=== PATIENT | female | born 1970 | race Caucasian/White ===

== ENCOUNTER 2019-03-06 08:32 | Outpatient (CLI) | payer OTHER ==
[~2019-03-06 08:32] MED LIST: ALPR1TAB2 PO; ASPI325T17 PO; DIAZ10TA PO; GABA-826 PO; MELO15TA6 PO; MORP60TA63 PO; OXYC-307 PO; OXYC10TA47 PO; PARO20TA98 PO; TRAZ50TA66 PO; morphine PO
[2019-03-06] MEDS ORDERED: OXYC10TA6 PO (09:00)
[2019-03-06] MEDS ORDERED: MULT-658 PO (09:00)
[2019-03-06] MEDS ORDERED: LUTE1CAP3 PO (09:00)
[2019-03-06] MEDS ORDERED: MORP60TA34 PO (09:00)
== END 2019-03-06 23:59 | disposition home or self-care (01) ==
LOC: STAR 08:32
PROVIDERS: ATTEND Orthopaedic Surgery
DX: Z02.9 Encounter for administrative examinations, unspecified (principal)

== ENCOUNTER 2019-03-10 11:33 | Inpatient (IN) | payer OTHER ==
[~2019-03-10] VITALS: Ht 170.2 cm; Wt 110.0 kg
[~2019-03-10 11:33] MED LIST changes: +LUTE1CAP3 PO; +MORP60TA34 PO; +MULT-658 PO; +OXYC10TA6 PO
[2019-03-10] MEDS ORDERED: LACTATED RINGERS 1,000 ML IV SCH (11:57)
[2019-03-10] MEDS ORDERED: morphine SULFATE/PF 1 MG/ML, 10ML ONE (12:55)
[2019-03-10] MEDS ORDERED: KETOROLAC 60 MG/2 ML ONE (12:55)
[2019-03-10] MEDS ORDERED: TRANEXAMIC ACID 100 MG/ML, 10ML ONE (12:55)
[2019-03-10] MEDS ORDERED: ROPIvacaine/PF 0.2%, 20 ML ONE (12:56)
[2019-03-10] MEDS ORDERED: EPINEPHRINE 1 MG/ML, 1ML ONE (12:56)
[2019-03-10] MEDS ORDERED: SODIUM CHLORIDE 0.9% 50 ML ONE (12:56)
[2019-03-10] MEDS ORDERED: ACETAMINOPHEN 500 MG TABLET PO ONE (13:00)
[2019-03-10] MEDS ORDERED: MIDAZOLAM 1 MG/ML, 2ML ONE (13:18)
[2019-03-10] MEDS ORDERED: FENTANYL PF 250 MCG/5ML ONE ×5 (13:18→14:48)
[2019-03-10] MEDS ORDERED: SCOPOLAMINE PATCH, 1.5MG PATCH.TD72 TD ONE ×2 (13:22→13:30)
[2019-03-10] MEDS ORDERED: GABAPENTIN 300 MG CAPSULE ONE (13:22)
[2019-03-10] MEDS ORDERED: GABAPENTIN 300 MG CAPSULE PO ONE (13:30)
[2019-03-10] MEDS ORDERED: VANCOMYCIN 1,000 MG ONE ×2 (13:40→14:42)
[2019-03-10] MEDS ORDERED: CEFAZOLIN 1,000 MG ONE ×2 (13:47)
[2019-03-10] MEDS ORDERED: DEXAMETHASONE 4 MG/ML, 1ML ONE ×2 (13:47)
[2019-03-10] MEDS ORDERED: ALBUTEROL SULFATE 2.5 MG/3 ML NPPB PRN (14:00)
[2019-03-10] MEDS ORDERED: MEPERIDINE/PF 25MG/ML,1ML IVPush PRN (14:00)
[2019-03-10] MEDS ORDERED: PROMETHAZINE 12.5 MG SUPP PR PRN (14:00)
[2019-03-10] MEDS ORDERED: DIAZEPAM 5 MG/ML, 2ML IVPush PRN (14:00)
[2019-03-10] MEDS ORDERED: ONDANSETRON 2MG/ML, 2ML IV PRN (14:00)
[2019-03-10] MEDS ORDERED: PROMETHAZINE 25 MG/ML, 1ML IV PRN (14:00)
[2019-03-10] MEDS ORDERED: ONDANSETRON ODT 8 MG PO PRN (14:00)
[2019-03-10] MEDS ORDERED: MIDAZOLAM 1 MG/ML, 2ML IV PRN (14:00)
[2019-03-10] MEDS ORDERED: hydrALAzine 20 MG/ML, 1ML IV PRN (14:00)
[2019-03-10] MEDS ORDERED: EPHEDRINE 50 MG/ML, 1ML IVPush PRN (14:00)
[2019-03-10] MEDS ORDERED: HALOPERIDOL 5 MG/ML IV PRN (14:00)
[2019-03-10] MEDS ORDERED: ONDANSETRON 2MG/ML, 2ML ONE (14:19)
[2019-03-10] MEDS ORDERED: ROCURONIUM 10MG/ML,5ML ONE (14:20)
[2019-03-10] MEDS ORDERED: PROPOFOL 10 MG/ML, 20ML ONE (14:20)
[2019-03-10] MEDS: FENTANYL PF 100 MCG/2ML IV PRN ×2 (15:26→15:31)
[2019-03-10] MEDS ORDERED: PROMETHAZINE 25 MG/ML, 1ML ONE (15:30)
[2019-03-10] MEDS ORDERED: FENTANYL PF 100 MCG/2ML ONE (15:30)
[2019-03-10] MEDS ORDERED: HYDROmorphone 2 MG/ML, 1ML ONE (15:30)
[2019-03-10] MEDS ORDERED: OXYcodone 5 MG/5 ML ORAL.SOL UDC ONE (15:30)
[2019-03-10] MEDS ORDERED: MEPERIDINE/PF 25MG/ML,1ML ONE (15:34)
[2019-03-10] MEDS: OXYcodone 5 MG/5 ML ORAL.SOL UDC PO PRN (15:38)
[2019-03-10] MEDS ORDERED: DIAZEPAM 5 MG/ML, 2ML ONE (15:45)
[2019-03-10] MEDS: LABETALOL 5MG/ML, 20ML IV PRN ×2 (16:25→17:20)
[2019-03-10] MEDS: HYDROmorphone 2 MG/ML, 1ML IVPush PRN ×6 (16:30→23:52)
[2019-03-10] MEDS ORDERED: hydrALAzine 20 MG/ML, 1ML ONE (17:00)
[2019-03-10 18:00] VITALS: BP 139/96
[2019-03-10] MEDS ORDERED: D5%-0.45% NACL+KCL 10MEQ 1,000 ML IV SCH (18:30)
[2019-03-10] MEDS ORDERED: ONDANSETRON 2MG/ML, 2ML IVPush PRN (18:30)
[2019-03-10] MEDS ORDERED: TRAZODONE 100MG TABLET PO PRN (18:30)
[2019-03-10] MEDS ORDERED: DIPHENHYDRAMINE 50 MG/ML, 1ML IVPush PRN (18:30)
[2019-03-10] MEDS ORDERED: OXYcodone 5 MG/5 ML ORAL.SOL UDC PO PRN (18:30)
[2019-03-10 18:31] VITALS: BP 130/90
[2019-03-10] MEDS: ASPIRIN 81 MG TABLET EC PO SCH (18:37)
[2019-03-10] MEDS: ACETAMINOPHEN 325 MG TABLET PO SCH ×3 (18:43→23:54)
[2019-03-10] MEDS: morphine SULFATE 60 MG TABLET.ER PO SCH (19:46)
[2019-03-10] MEDS: OXYcodone IR 5MG TABLET PO SCH (19:46)
[2019-03-10] MEDS ORDERED: GABAPENTIN 300 MG CAPSULE PO SCH (21:00)
[2019-03-10] MEDS: CEFAZOLIN PMX 1GM/50ML 50 ML IVPB SCH (21:31)
[2019-03-11 00:09] VITALS: BP 116/72
[2019-03-11] MEDS ORDERED: VANCOMYCIN PMX 1GM/200ML 200 ML IVPB ONE (01:30)
[2019-03-11] MEDS: HYDROmorphone 2 MG/ML, 1ML IVPush PRN ×3 (03:12→10:04)
[2019-03-11 03:32] VITALS: BP 130/81
[2019-03-11] MEDS: OXYcodone 5 MG/5 ML ORAL.SOL UDC PO PRN (04:43)
[2019-03-11] MEDS: ACETAMINOPHEN 325 MG TABLET PO SCH ×3 (04:43→12:10)
[2019-03-11] MEDS: ASPIRIN 81 MG TABLET EC PO SCH (06:14)
[2019-03-11] MEDS: CEFAZOLIN PMX 1GM/50ML 50 ML IVPB SCH (06:14)
[2019-03-11 07:16] VITALS: BP 119/90
[2019-03-11] MEDS: OXYcodone IR 5MG TABLET PO SCH ×2 (08:53→15:44)
[2019-03-11] MEDS: morphine SULFATE 60 MG TABLET.ER PO SCH ×2 (08:54→15:44)
[2019-03-11] MEDS ORDERED: MULTIVITAMIN 1 TABLET PO SCH (09:00)
[2019-03-11] MEDS ORDERED: MELOXICAM 15 MG TABLET PO SCH (09:00)
[2019-03-11] MEDS ORDERED: MORP60TA63 PO (13:06)
[2019-03-11] MEDS ORDERED: HYDR2TAB29 PO (13:07)
[2019-03-11] MEDS ORDERED: OXYC5CAP2 PO (13:07)
[2019-03-11] MEDS ORDERED: OXYC-307 PO (13:08)
[2019-03-11] MEDS ORDERED: ASPI-496 PO (13:08)
[2019-03-11 13:21] VITALS: BP 125/79
[2019-03-11] MEDS ORDERED: SUGAMMADEX 200 MG/2 ML IVPush ONE (13:34)
== END 2019-03-11 16:10 | disposition home or self-care (01) | DRG 470 ==
LOC: OUT 11:33 → 4NE 17:55 → OUT 18:02
PROVIDERS: ADMIT Orthopaedic Surgery; ATTEND Orthopaedic Surgery
PROC: 3E0T3BZ Introduction of Anesthetic Agent into Peripheral Nerves and Plexi, Percutaneous Approach (ICD-10-PCS; 2019-03-10)
PROC: 0SRC0J9 Replacement of Right Knee Joint with Synthetic Substitute, Cemented, Open Approach (ICD-10-PCS; principal; 2019-03-10 13:30)
DX: M17.11 Unilateral primary osteoarthritis, right knee (principal); E66.01 Morbid (severe) obesity due to excess calories; Z68.38 Body mass index [BMI] 38.0-38.9, adult; I10 Essential (primary) hypertension; Z87.891 Personal history of nicotine dependence
CPT/HCPCS: C1713; G0378; J0171; J0690; J1100; J1170; J1885; J2250; J2274; J2405; J2550; J2704; J2795; J3010; J3360; J3370; C1776; J2175; J7120

== ENCOUNTER 2019-04-14 17:24 | Inpatient (IN) | payer OTHER ==
[~2019-04-14] VITALS: Ht 170.2 cm; Wt 112.4 kg
[~2019-04-14 17:24] MED LIST changes: +ASPI-496 PO; +HYDR2TAB29 PO; +OXYC5CAP2 PO
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
[2019-04-14] MEDS ORDERED: SODIUM CHLORIDE FLUSH 10ML SYR IVF ONE (17:30)
[2019-04-14] MEDS ORDERED: ONDANSETRON 2MG/ML, 2ML IVPush ONE (17:30)
[2019-04-14] MEDS ORDERED: MORPHINE SULFATE 4 MG/ML, 1ML IVPush PRN (17:30)
--- NOTE | 2019-04-14 17:40 | NUR ---
LAB AT BEDSIDE.
--- NOTE | 2019-04-14 18:00 | NUR ---
REPORT FROM EUGENE URIOSTEGUI, ASSUMING CARE OF PT AT THIS TIME
[2019-04-14 18:02] LABS: ALBUMIN 3.7 g/dL (3.4-5.0); ANION GAP 16 mmol/L (5-15); CALCIUM 8.9 mg/dL (8.5-10.1); CHLORIDE 108 mmol/L (98-107); MEAN CORPUSCULAR HEMOGLOBIN 30.8 pg (27.0-34.8); MEAN CORPUSCULAR HGB CONC 33.1 g/dL (32.4-35.8); MEAN PLATELET VOLUME 8.4 fL (7.4-10.4); PLATELET COUNT 329 x10^3/uL (130-400); RED BLOOD COUNT 4.78 x10^6/uL (3.82-5.3); RED CELL DISTRIBUTION WIDTH 15.1 % (9.6-15.2)
[2019-04-14] MEDS ORDERED: PROPOFOL 10 MG/ML, 20ML IVPush ONE (18:30)
[2019-04-14 18:31] LABS: BASOPHILS # (AUTO) 0.09 x10^3/uL (0-0.1); BASOPHILS % (AUTO) 1 % (0-1); EOSINOPHILS # (AUTO) 0.04 x10^3/uL (0-0.4); EOSINOPHILS % (AUTO) 0 % (1-7); LYMPHOCYTES # (AUTO) 1.34 x10^3/uL (1-3.4); LYMPHOCYTES % (AUTO) 7 % (22-44); MD SCAN; MONOCYTES # (AUTO) 0.85 x10^3/uL (0.2-0.8); MONOCYTES % (AUTO) 5 % (2-9); NEUTROPHILS # (AUTO) 16.78 x10^3/uL (1.8-6.8); NEUTROPHILS % (AUTO) 88 % (42-75)
--- NOTE | 2019-04-14 18:40 | NUR ---
CONSENT SIGNED FOR CONSCIOUS SEDATION TO REDUCE RIGHT KNEE. FAMILY AT BEDSIDE.
--- NOTE | 2019-04-14 19:15 | NUR ---
CON SED COMPLETE, SUCCESSFUL REDUCTION OF RIGHT KNEE, PULSES PALPABLE IN BILATERAL FEET. RAD COMPLETE. PT BEIMNG TAKEN TO CT. HOSPITALIST JUAN AT BEDSIDE FOR ADMIT ASSESSMENT.
[2019-04-14] MEDS ORDERED: CEFTRIAXONE PMX 1GM/50ML 50 ML IV ONE (19:30)
[2019-04-14] MEDS ORDERED: SODIUM CHLORIDE 0.9%, 500ML IVBOLUS ONE (19:30)
--- NOTE | 2019-04-14 19:40 | NUR ---
BACK FROM CT. LAB AT BEDSIDE FOR BLOOD CULTURES X2. PT C/O HEAD ACHE AND NEEDING TO VOID. FLUIDS STILL RUNING FOR HYPOTENSION.
[2019-04-14] MEDS ORDERED: OMNIPAQUE 350 MG/ML, 150 ML BOTTLE ONE (19:57)
[2019-04-14] MEDS ORDERED: ACETAMINOPHEN 325 MG TABLET PO PRN (20:00)
[2019-04-14] MEDS ORDERED: METHOCARBAMOL 500 MG TABLET PO PRN (20:00)
[2019-04-14] MEDS ORDERED: ONDANSETRON 2MG/ML, 2ML IVPush PRN (20:00)
--- NOTE | 2019-04-14 20:23 | NUR ---
US AT BEDSIDE. PT STILL DROWSY BUT EASILY AROUSABLE TO VERBAL STIMULI. VSS. CALL LIGHT WITHIN REACH
[2019-04-14] MEDS ORDERED: CEFTRIAXONE PMX 1GM/50ML 50 ML ONE (20:30)
[2019-04-14] MEDS: LACTATED RINGERS 1,000 ML IV SCH (20:34)
[2019-04-14] MEDS ORDERED: GABA600T7 PO (20:36)
[2019-04-14 20:58] LABS: FREE T4 (FREE THYROXINE) 1.07 ng/dL (0.76-1.46)
--- NOTE | 2019-04-14 21:00 | NUR ---
PT AND FAMILY UPDATED ON POC. VSS AT THIS TIME, FLUIDS HAVE HELPED PT BP NOW WNL. PT STILL ONLY TAKING SHALLOW BREATHS. PT AND FAMILY INFORMED OF IMPORTANCE TO DEEP BREATH AND NOT TO OVER MEDICATE ON PAIN MEDICATION AT HOME. AWAITING ROOM ASSIGNMENT ON FLOOR. CALL LIGHT WITHIN REACH
--- NOTE | 2019-04-14 21:01 | NUR ---
PT UPDATED ON NPO STATUS, STS UNDERSTANDING
--- NOTE | 2019-04-14 21:49 | NUR ---
ORTHO MND AT BEDSIDE FOR ADMIT ASSESSMENT AND TO UPDATE PT AND FAMILY ON PLAN
[2019-04-14 22:13] LABS: HCT (SEDRATE) 42.4 % (34.6-47.8)
--- NOTE | 2019-04-14 22:30 | NUR ---
REPORT GIVEN TO TAN URIOSTEGUI
[2019-04-14 23:00] VITALS: BP 106/60
[2019-04-15 00:16] LABS: CULTURE INDICATED? YES; MICROSCOPIC INDICATED
[2019-04-15 00:17] LABS: CREATININE,URINE RANDOM 48.5 mg/dL
[2019-04-15] MEDS: HEPARIN 5,000 UNITS/ML, 1ML SQ SCH ×3 (00:19→16:40)
[2019-04-15 02:06] VITALS: BP 101/62
[2019-04-15] MEDS: LACTATED RINGERS 1,000 ML IV SCH ×3 (03:40→16:00)
[2019-04-15] MEDS: morphine SULFATE 10 MG/ML, 1ML IVPush PRN ×5 (03:56→18:55)
[2019-04-15 06:43] LABS: BASOPHILS # (AUTO) 0.02 x10^3/uL (0-0.1); BASOPHILS % (AUTO) 0 % (0-1); EOSINOPHILS # (AUTO) 0.02 x10^3/uL (0-0.4); EOSINOPHILS % (AUTO) 0 % (1-7); LYMPHOCYTES # (AUTO) 1.13 x10^3/uL (1-3.4); LYMPHOCYTES % (AUTO) 14 % (22-44); MD NO; MEAN CORPUSCULAR HEMOGLOBIN 31.2 pg (27.0-34.8); MEAN CORPUSCULAR HGB CONC 33.5 g/dL (32.4-35.8); MEAN CORPUSCULAR VOLUME 93.2 fL (80-100); MEAN PLATELET VOLUME 8.4 fL (7.4-10.4); MONOCYTES # (AUTO) 0.48 x10^3/uL (0.2-0.8); MONOCYTES % (AUTO) 6 % (2-9); NEUTROPHILS # (AUTO) 6.68 x10^3/uL (1.8-6.8); NEUTROPHILS % (AUTO) 80 % (42-75); PLATELET COUNT 229 x10^3/uL (130-400); RED BLOOD COUNT 3.77 x10^6/uL (3.82-5.3); RED CELL DISTRIBUTION WIDTH 15.5 % (9.6-15.2)
[2019-04-15 06:56] LABS: ALANINE AMINOTRANSFERASE 58 U/L (12-78); ANION GAP 6 mmol/L (5-15); CALCIUM 8.4 mg/dL (8.5-10.1); CHLORIDE 111 mmol/L (98-107)
[2019-04-15 06:59] LABS: ALKALINE PHOSPHATASE 85 U/L (45-117); BILIRUBIN,TOTAL 0.8 mg/dL (0.2-1.0); CREATININE 1.19 mg/dL (0.55-1.02); TOTAL PROTEIN 5.7 g/dL (6.4-8.2)
[2019-04-15] MEDS ORDERED: MULTIVITAMIN 1 TABLET PO SCH (09:00)
[2019-04-15] MEDS ORDERED: ASPIRIN 81 MG TABLET EC PO SCH (09:00)
[2019-04-15] MEDS ORDERED: PAROXETINE 20 MG TABLET PO SCH (09:00)
[2019-04-15 09:42] VITALS: BP 114/71
[2019-04-15 13:08] VITALS: BP 113/74
[2019-04-15] MEDS ORDERED: OXYC-302 PO (15:48)
[2019-04-15] MEDS ORDERED: CEFTRIAXONE PMX 1GM/50ML 50 ML IV SCH (20:00)
== END 2019-04-15 19:45 | disposition home or self-care (01) | DRG 559 ==
LOC: ED 19:30 → EDIP 19:39 → ED 20:03 → 4EST 22:49
PROVIDERS: ADMIT Hospitalist; ATTEND Internal Medicine
PROC: 0SSCXZZ Reposition Right Knee Joint, External Approach (ICD-10-PCS; principal; 2019-04-14)
PROC: 0T9B70Z Drainage of Bladder with Drainage Device, Via Natural or Artificial Opening (ICD-10-PCS; 2019-04-14)
DX: T84.022A Instability of internal right knee prosthesis, initial encounter (principal); J96.01 Acute respiratory failure with hypoxia; N17.0 Acute kidney failure with tubular necrosis; E87.2 Acidosis; D72.823 Leukemoid reaction; E86.0 Dehydration; Z96.652 Presence of left artificial knee joint; S83.104A Unspecified dislocation of right knee, initial encounter; Y79.2 Prosthetic and other implants, materials and accessory orthopedic devices associated with adverse incidents; M19.90 Unspecified osteoarthritis, unspecified site; W01.0XXA Fall on same level from slipping, tripping and stumbling without subsequent striking against object, initial encounter; I95.9 Hypotension, unspecified; Y93.89 Activity, other specified; Z87.891 Personal history of nicotine dependence; Y99.8 Other external cause status; Y92.098 Other place in other non-institutional residence as the place of occurrence of the external cause
CPT/HCPCS: 27550; 36415; 71045; 76770; 80048; 80053; 81001; 82040; 82436; 82550; 82570; 83605; 83735; 84100; 84133; 84300; 84439; 84443; 85025; 85651; 87040; 87086; 93005; 93306; 96361; 96374; 99152; G0378; J0696; J1644; Q9967; J2270; J7040; J7120